=== PATIENT | male | born 1985 ===

== ENCOUNTER 2016-10-10 01:31 | Emergency (ER) | payer SELFPAY ==
[2016-10-10 01:38] VITALS: RESP 16
[2016-10-10] MEDS ORDERED: Sodium Chloride 0.9% 1,000 ML IV STA (02:01)
--- NOTE | 2016-10-10 02:25 | ED PDOC ---
HPI: Psych/Substance Abuse Time Seen by Provider: 10/10/16 01:36 Chief Complaint (Nursing): Alcohol Ingestion Chief Complaint (Provider): Alcohol Ingestion ED Caveat: Intoxicated History Per: Patient, EMS History/Exam Limitations: no limitations Onset/Duration Of Symptoms: Mins (upon provider evaluation, patient started vomiting.) Current Symptoms Are (Timing): Still Present Suicide/Self Injury Attempted (Context): None Modifying Factor(s): Alcohol Severity: Moderate Additional Complaint(s): 30 year old male with no pertinent medical history is brought into the ED by EMS with complaints of alcohol intoxication. Patient denies having any medical complaints upon arrival. Patient subsequently began vomiting. PMD: Not provided. Past Medical History Reviewed: Historical Data, Nursing Documentation, Vital Signs Vital Signs: Last Vital Signs Temp 98.8 F 10/10/16 01:35 Pulse 86 10/10/16 01:35 Resp 16 10/10/16 01:35 BP 117/63 10/10/16 01:35 Pulse Ox 99 10/10/16 01:35 - Medical History PMH: No Chronic Diseases - Surgical History Surgical History: No Surg Hx - Family History Family History: States: No Known Family Hx - Social History Current smoker - smoking cessation education provided: No Alcohol: Occasional Drugs: Denies - Home Medications Home Medications: Ambulatory Orders Medication Instructions Recorded No Known Home Med 10/10/16 - Allergies Allergies/Adverse Reactions: Allergies Allergy/AdvReac Type Severity Reaction Status Date / Time No Known Allergies Allergy Verified 10/10/16 01:38 Review of Systems ROS Statement: Except As Marked, All Systems Reviewed And Found Negative Gastrointestinal: Positive for: Vomiting Physical Exam - Reviewed Nursing Documentation Reviewed: Yes Vital Signs Reviewed: Yes - Physical Exam Appears: Positive for: Well, Non-toxic, No Acute Distress Head Exam: Positive for: ATRAUMATIC, NORMOCEPHALIC Skin: Positive for: Normal Color, Warm, Dry Eye Exam: Positive for: Normal appearance ENT: Positive for: Normal ENT Inspection Neck: Positive for: Normal Cardiovascular/Chest: Positive for: Regular Rate, Rhythm Respiratory: Positive for: Normal Breath Sounds. Negative for: Respiratory Distress Gastrointestinal/Abdominal: Positive for: Normal Exam Neurologic/Psych: Positive for: Alert, Oriented (3x), Other (slurred speech) - Laboratory Results Result Diagrams: 10/10/16 02:10 10/10/16 02:10 - ECG O2 Sat by Pulse Oximetry: 99 (RA) Pulse Ox Interpretation: Normal Medical Decision Making Medical Decision Makin:36 Initial impression: 30 year old male with alcohol intoxication. Initial plan: * alcohol serum * CMP * CBC * IV NS 1,000ml IV 1,000mls/hr * zofran 4mg IV * accucheck * reevaluation 2:23 Patient is being placed in ED observation pending clinical sobriety, reevaluation, and final disposition. Scribe Attestation: Documented by Heidi See, acting as a scribe for Han Mann MD. Provider Scribe Attestation: All medical record entries made by the Scribe were at my direction and personally dictated by me. I have reviewed the chart and agree that the record accurately reflects my personal performance of the history, physical exam, medical decision making, and the department course for this patient. I have also personally directed, reviewed, and agree with the discharge instructions and disposition. ED OBSERVATION Date of observation admission: 10/10/16 Time of observation admission: 02:23 - Observation admission statement Patient is being placed in observation because:: Need for resolution of symptoms. - Goals of Observation Goals of observation are:: Clinical sobriety. - Progress Note Progress Note: 10/10/16 02:23 Patient is resting comfortably, vitals are stable. 10/10/16 04:00 Patient is sleeping comfortably, vitals are stable. 10/10/16 05:34 Patient is sleeping comfortably, vitals are stable. 10/10/16 06:03 Patient is clinically sober. Patient is awake, alert, and orientedX3, and has a steady gait. Patient denies having nausea and vomiting. Patient is stable for discharge. Disposition - Clinical Impression Clinical Impression: Alcohol abuse with intoxication - Disposition Disposition Time: 06:03 Condition: STABLE Forms: [employer] ([place]ian), [facility] ED School/Work Excuse Print Language: CHADIAN
[2016-10-10 02:26] LABS: BASO # 0.1 K/uL (0.0-0.2); EOS # 0.1 K/uL (0.0-0.7); HEMOGLOBIN 15.6 g/dL (12.0-18.0); LYMPH # 3.5 K/uL (1.0-4.3); LYMPH % 43.3 % (20.0-40.0); MEAN CELL VOLUME 89.3 fl (80.0-94.0); MEAN CORPUSCULAR HEMOGLOBIN 31.2 pg (27.0-31.0); MEAN CORPUSCULAR HGB CONC 34.9 g/dL (33.0-37.0); MEAN PLATELET VOLUME 10.5 fl (7.2-11.7); MONO # 0.4 K/uL (0.0-0.8); MONO % 5.4 % (0.0-10.0); NEUT % 49.3 % (50.0-75.0); RBC 5.01 Mil/uL (4.40-5.90); RED CELL DISTRIBUTION WIDTH 13.9 % (11.5-14.5); WHITE BLOOD COUNT 8.1 K/uL (4.8-10.8)
[2016-10-10 02:41] LABS: ALB/GLOB RATIO 1.5 (1.0-2.1); ALBUMIN 4.5 g/dL (3.5-5.0); ALT/SGPT 50 U/L (21-72); AST/SGOT 33 U/L (17-59); BLOOD UREA NITROGEN 12 mg/dl (9-20); GFR AFRICAN-AMERICAN > 60; GFR NON-AFRICAN AMERICAN > 60
[2016-10-10 06:02] VITALS: BP 122/78; PULSE 92; TEMP 98.7
[2016-10-10 06:35] VITALS: O2SAT 99
== END 2016-10-10 06:03 | disposition home or self-care (01) ==
LOC: H.ER 01:31
DX: F10.129 Alcohol abuse with intoxication, unspecified (principal); Y90.7 Blood alcohol level of 200-239 mg/100 ml
CPT/HCPCS: 80053; 82948; 85025; 96360; 99282; G0480; J2405; J7040